=== PATIENT | female | born 1965 | race Caucasian/White ===

== ENCOUNTER 2018-05-03 14:22 | Outpatient (CLI) | payer BC ==
--- NOTE | 2018-05-03 16:23 | ULT ---
THYROID ULTRASOUND: 05/03/18 INDICATION: History of thyroid nodule. COMPARISON: None. TECHNIQUE: Sanchez scale, color doppler images were obtained of the thyroid gland. FINDINGS: The right thyroid lobe measures 4.9 x 1.5 x 1.3 cm. Left thyroid lobe measures 3.9 x 1.3 x 1.1 cm. Th e thyroid isthmus measures 0.5 cm. No focal thyroid lesion is identified. No lymphadenopathy is evide nt. IMPRESSION: No focal thyroid lesion identified. POS: JAMES
== END 2018-05-03 14:23 | disposition home or self-care (01) ==
LOC: BICULT 14:22
PROVIDERS: ATTEND Family Medicine
DX: E04.1 Nontoxic single thyroid nodule (principal)
CPT/HCPCS: 76536

== ENCOUNTER 2018-08-27 14:32 | Outpatient (CLI) | payer OTHER ==
--- NOTE | 2018-08-27 16:41 | MRI ---
MRI OF THE CERVICAL SPINE WITHOUT CONTRAST: Date: 08/27/18 COMPARISON: None. HISTORY: Crick in neck, cervical nerve root compression. TECHNIQUE: Multiplanar, multisequence MR imaging of the cervical spine is obtained without contrast. FINDINGS: The sagittal STIR imaging demonstrates no focal area of osseous marrow edema. There is mild degenerative change noted at the atlantoaxial interspace. No significant anterolisthesi s or retrolisthesis is seen within the cervical spine. No prevertebral soft tissue abnormality noted. C2-3: Mild bilateral facet hypertrophy with no central canal or neural foraminal stenosis. C3-4: Mild disc space narrowing and minimal disc bulge. Mild facet and uncovertebral osteophyte form ation on the left. No significant central canal or neural foraminal stenosis. C4-5: Mild anterior osteophyte formation. No significant central canal or neural foraminal stenosis. C5-6: There is disc space narrowing and mild disc bulge. There is anterior osteophyte formation. The re is facet and uncovertebral osteophyte formation on the left with moderate left neural foraminal st enosis. Mild central canal stenosis. No significant right neural foraminal stenosis. C6-7: Disc space narrowing, anterior osteophyte formation, and disc bulge noted. There is a disc her niation in the left paracentral region. There is facet and uncovertebral osteophyte formation on the left. There is severe left-sided neural foraminal stenosis. There is no significant central canal or right neural foraminal stenosis. C7-T1: Mild bilateral facet hypertrophy with no significant central canal or neural foraminal stenos is. No focal area of abnormal signal intensity is identified within the cervical cord. IMPRESSION: Degenerative changes are noted within the cervical spine. The most significant finding being a left p aracentral/left foraminal disc herniation at C6-7 with associated severe left-sided neural foraminal stenosis. POS: COLIN
== END 2018-08-27 14:33 | disposition home or self-care (01) ==
LOC: BICMRI 14:32
PROVIDERS: ATTEND Family Medicine
DX: G54.2 Cervical root disorders, not elsewhere classified (principal); M47.812 Spondylosis without myelopathy or radiculopathy, cervical region; M50.223 Other cervical disc displacement at C6-C7 level; M48.02 Spinal stenosis, cervical region
CPT/HCPCS: 72141

== ENCOUNTER 2018-11-25 23:31 | Observation (INO) | payer OTHER ==
--- NOTE | 2018-11-25 23:53 | CT ---
Head CT without contrast 11/25/2018: COMPARISON: 11/14/2014 HISTORY: Syncope, collapse TECHNIQUE: Axial CT imaging at 5 mm intervals from vertex through skull base without contrast FINDINGS: Imaged paranasal sinuses and mastoid air cells well-aerated. No displaced calvarial fractur e. No intracranial hemorrhage, midline shift, mass effect, or ventricular enlargement. IMPRESSION: No acute findings.
--- NOTE | 2018-11-25 23:56 | RAD ---
Portable frontal chest radiograph: 11/25/2018 COMPARISON: None HISTORY: Syncope FINDINGS: Lungs are clear. Heart and mediastinal contours appear within normal limits. IMPRESSION: No acute findings.
[2018-11-26] MEDS ORDERED: Promethazine HCl 25 MG/ML VIAL ONE
[2018-11-26 00:15] LABS: #Eosinphils 0.3 thou/uL (0.0-0.7); #Lymphocytes 2.9 thou/uL (1.20-3.40); #Monocytes 0.5 thou/uL (0.11-0.59); #Neutrophils 6.2 thou/uL (1.40-6.50); %Basophils 0.3 % (0.0-1.0); %Eosinophils 2.7 % (0.0-10.0); %Lymphocytes 29.3 % (21.0-51.0); %Monocytes 5.2 % (0.0-10.0); %Neutrophils 62.5 % (42.0-75.0); Hemoglobin 11.6 g/dL (12.0-16.0); Mean Corpuscular HGB CONC 33.7 g/dL (32.0-36.0); Mean Corpuscular Hemoglobin 31.8 pg (27.0-31.0); Mean Corpuscular Volume 94.3 fL (78.0-98.0); Mean Platelet Volume 7.2 fL (7.4-10.4); Platelet Count 355 thou/uL (130-400); RBC Distribution Width 12.3 % (11.5-14.5); Red Blood Cell (RBC) Count 3.64 mill/uL (4.20-5.40); White Blood Cell (WBC) Count 9.9 thou/uL (4.8-10.8)
[2018-11-26] MEDS ORDERED: Magnesium 2 GM/50 ML BAG (IN WATER) ONE (00:28)
[2018-11-26 00:31] LABS: ALT (SGPT) 17 U/L (8-55); AST (SGOT) 16 U/L (5-34); Albumin 3.9 g/dL (3.5-5.0); Alkaline Phosphatase 69 U/L (40-150); Anion Gap 19 mmol/L (10-20); BUN (Urea Nitrogen) 26 mg/dL (9.8-20.1); Bilirubin, Total 0.3 mg/dL (0.2-1.2); Calc. Creatinine Clearance 0 mL/min (70-130); Calcium 8.8 mg/dL (7.8-10.44); Carbon Dioxide 17 mmol/L (22-29); Chloride 105 mmol/L (98-107); Estimated GFR-MDRD 26; Globulin 2.7 g/dL (2.4-3.5); Glucose 157 mg/dL (70-105); Protein, Total 6.6 g/dL (6.0-8.3); Sodium 138 mmol/L (136-145)
[2018-11-26 00:32] LABS: Acetaminophen Less than 6.0 mcg/mL (10.0-30.0); Alcohol Less than 10 mg/dL (Less than 10); Lipase 122 U/L (8-78); Magnesium 1.6 mg/dL (1.6-2.6); Salicylate Less than 8.0 mg/dL (15.0-30.0)
[2018-11-26 00:44] LABS: Potassium 2.8 mmol/L (3.5-5.1)
[2018-11-26] MEDS ORDERED: Potassium Chloride 20 MEQ TAB ONE (01:03)
[2018-11-26 02:02] LABS: Creatinine, Urine 144.1 mg/dL (47-110)
--- NOTE | 2018-11-26 02:19 | PDOC.FPRHP ---
- History of Present Illness Chief Complaint: syncope History of Present Illness: Ms. Katz presents with her with a witnessed fall Earlier this evening she was attempting to fall asleep when she felt restless and got up to go to the restroom, her saw her fall forward, hit her head on the toilet and then slump on the floor. possible arm jerking type motion. aroused and baseline mentation within seconds of fall. She denies chest pain, continued drowsiness, palpitation, or focal weakness. She does report that she felt generally weak and light headed at the time. No recent illness or history of seizure or similar episode. She reports no low blood sugars in the past and no sweating or chills with this event. ED Course: CBC, CMP, ddimer, mag, lipase, trop, UDS, prolactin, urine Na/Cr CT brain, CXR 2 L NS, KCl, Mg, phenegran - Allergies/Adverse Reactions Allergies Allergy/AdvReac Type Severity Reaction Status Date / Time azithromycin Allergy Unverified 11/26/18 01:04 - History PMHx:HTN, HLD, DMII, Anxiety/depression PSHx: choley FHx:NC Social: no tobacco/alcohol. daily marijuana use - Review of Systems General: denies: fever/chills, night sweats Eyes: denies: vision changes Respiratory: denies: cough, shortness of breath Cardiovascular: denies: chest pain, palpitation, edema Gastrointestinal: denies: nausea, vomiting, diarrhea, constipation Genitourinary: denies: dysuria, polyuria Skin: denies: rashes, lesions Musculoskeletal: denies: pain, tenderness Neurological: reports: syncope. denies: numbness Psychological: reports: anxiety, depression - Vital signs BP: 102/55 HR: 96 RR: 19 Tmax: 97.9 Pox: 100% on RA Wt: 86kg - Physical Exam Constitutional: NAD, awake, alert and oriented HEENT: normocephalic and atraumatic, grossly normal vision, grossly normal hearing, MMM Neck: supple, trachea midline, no bruits Chest: no-tender to palpation Heart: RRR, normal S1/S2 Lungs: CTAB, no respiratory distress, good air movement Abdomen: soft, non-tender, bowel sounds present Musculoskeletal: normal structure, normal tone Neurological: no focal deficit, CN II-XII intact, normal sensation Skin: no rash/lesions, good turgor Heme/Lymphatic: no unusual bruising or bleeding Psychiatric: normal mood and affect FMR H&P: Results - Labs Result Diagrams: 11/25/18 23:57 11/25/18 23:57 Lab results: WBC 9.9 thou/uL (4.8-10.8) 11/25/18 23:57 Hgb 11.6 g/dL (12.0-16.0) L 11/25/18 23:57 Hct 34.3 % (36.0-47.0) L 11/25/18 23:57 MCV 94.3 fL (78.0-98.0) 11/25/18 23:57 Plt Count 355 thou/uL (130-400) 11/25/18 23:57 Neutrophils % 62.5 % (42.0-75.0) 11/25/18 23:57 Sodium 138 mmol/L (136-145) 11/25/18 23:57 Potassium 2.8 mmol/L (3.5-5.1) L* 11/25/18 23:57 Chloride 105 mmol/L (98-107) 11/25/18 23:57 Carbon Dioxide 17 mmol/L (22-29) L 11/25/18 23:57 BUN 26 mg/dL (9.8-20.1) H 11/25/18 23:57 Creatinine 2.04 mg/dL (0.6-1.1) H 11/25/18 23:57 Glucose 157 mg/dL (70-105) H 11/25/18 23:57 Calcium 8.8 mg/dL (7.8-10.44) 11/25/18 23:57 Total Bilirubin 0.3 mg/dL (0.2-1.2) 11/25/18 23:57 AST 16 U/L (5-34) 11/25/18 23:57 ALT 17 U/L (8-55) 11/25/18 23:57 Alkaline Phosphatase 69 U/L (40-150) 11/25/18 23:57 Serum Total Protein 6.6 g/dL (6.0-8.3) 11/25/18 23:57 Albumin 3.9 g/dL (3.5-5.0) 11/25/18 23:57 Lipase 122 U/L (8-78) H 11/25/18 23:57 FMR H&P: A/P - Problem List (1) Elevated prolactin level Current Visit: Yes Status: Acute Code(s): 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, UNSPECIFIED (2) Hypokalemia Current Visit: Yes Status: Acute Code(s): E87.6 - HYPOKALEMIA (3) SOLEDAD (acute kidney injury) Current Visit: Yes Status: Acute Code(s): N17.9 - ACUTE KIDNEY FAILURE, UNSPECIFIED (4) Elevated lipase Current Visit: Yes Status: Acute Code(s): R74.8 - ABNORMAL LEVELS OF OTHER SERUM ENZYMES (5) Syncope Current Visit: Yes Status: Acute Code(s): R55 - SYNCOPE AND COLLAPSE (6) DMII (diabetes mellitus, type 2) Current Visit: Yes Status: Acute (7) HTN (hypertension) Current Visit: Yes Status: Acute Code(s): I10 - ESSENTIAL (PRIMARY) HYPERTENSION (8) HLD (hyperlipidemia) Current Visit: Yes Status: Acute Code(s): E78.5 - HYPERLIPIDEMIA, UNSPECIFIED - Plan Syncope - witnessed fall with head injury, CT neg for acute process - hypotension with associated tachycardia - Orthostatics, TSH, MRI brain WO con pending - hold anticoagulation ppx elevated prolactin - possible seizure-like activity - consider EEG, Neuro consult in AM - consider quietapine as a possible cause SOLEDAD - elevated from previous values, consider hypovolemia - urine studies pending - IVF resuscitation - monitor CMP elevated lipase - unknown cause, consider further evaluation with CT abd/pel - amylase pending hypokalemia - 2.8 POA, oral and IV potassium given in ED - monitor CMP DMII - mild SSI with ACHS glucose checks - continue home meds HTN - hold home meds HLD - continue home meds PCP: Valeriano Code: full ppx: [facility] Dispo: admit to stroke for continuous monitoring FMR H&P: Upper Level - Pertinent history 53 yo female presenting to ER from home after a syncopal episode. Patient reports she had just taken her bedtime medications and was walking to the bathroom when she suddenly felt nauseous, dizzy, restless. Lost consciousness and woke up on the floor. reports she fell to the floor and was only out momentarily with no seizure like activity. In ER, received Phenergan, potassium iv and po, Mg, NS 2L PMH of DMII, HTN, anxiety, depression, cervical nerve root compression - Pertinent findings 108/51 HR: 85 100% on RA RR: 23 K: 2.8 Cr: 2.04 (1.2 in clinic in Jul 2018) M.6 CT abd and CXR negative EKG: NSR GEN: NAD, AOx3 CARD: RRR, no mgr PULM: CTAB ABD: non-tender EXT: no cyanosis or edema - Plan Date/Time: 11/26/18 0215 I, Jareth Bal DO, have evaluated this patient and agree with findings/plan as outlined by internet network specialist resident. Pertinent changes/additions are listed here. #syncopal episode -CVA vs TIA vs vasovagal vs hypovolemic vs iatrogenic -fluid resuscitated 2/ SOLEDAD -check orthostatics -CT head neg for bleed -check the other stroke workup (MRI, CTA head/neck, lipids) -monitor on stroke #SOLEDAD #hypokalemia -replace and recheck #DMII -continue home meds #HTN -continue home meds #elevated lipase -check amylase -consider CT abdomen #elevated prolactin -low suspicion for medication induced -low suspicion for stroke induced -can be caused by tumor on pituitary, will be able to check on MRI -also check TSH Addendum - Attending - Attending Attestation Date/Time: 11/26/18 1101 I personally evaluated the patient and discussed the management with Dr. Jiang/ Valeriano. I agree with the History, Examination, Assessment and Plan documented above with any addition or exceptions noted below. Patient here after fall that occurred overnight, witnessed. She reports noticing her medications kick in, and reported a hot flash so she attempted to get out of bed and felt pre-syncopal with a fall and syncope episode thereafter. She immediately returned to baseline mentation. Low suspicion of seizure activity, and her Prolactin level is too far out from event to be from seizure activity. She is being admitted for syncope workup and hypovolemia. She reports feeling improved currently. Replete potassium. Monitor on stroke unit and anticipate just an overnight stay in hospital with further workup outpatient if needed.
[2018-11-26] MEDS ORDERED: Dextrose 5% in Water 1,000 ML IV PRN (05:21)
[2018-11-26] MEDS ORDERED: Acetaminophen 650 MG Suppository PR PRN (05:21)
[2018-11-26] MEDS ORDERED: Lorazepam 2 MG/ML VIAL SLOW IVP PRN (05:21)
[2018-11-26] MEDS ORDERED: Ondansetron PF 4 MG/2 ML Vial IVP PRN (05:21)
[2018-11-26] MEDS ORDERED: Dextrose 50% Abboject 50 ML SYRINGE SLOW IVP PRN (05:21)
[2018-11-26] MEDS ORDERED: Acetaminophen 325 MG TAB PO PRN (05:21)
[2018-11-26] MEDS ORDERED: Ondansetron ODT 4 MG TAB PO PRN (05:21)
[2018-11-26] MEDS ORDERED: HumaLOG 300 UNITS/3 ML VIAL SC PRN ×2 (05:21)
[2018-11-26] MEDS ORDERED: Ibuprofen 800 MG TAB PO PRN ×2 (08:28→19:29)
[2018-11-26 11:42] LABS: Troponin I Less than 0.010 ng/mL (< 0.028)
[2018-11-26 12:15] VITALS: BMI 32.6
[2018-11-26 12:31] LABS: Anion Gap 20 mmol/L (10-20); BUN (Urea Nitrogen) 17 mg/dL (9.8-20.1); Calc. Creatinine Clearance 62 mL/min (70-130); Calcium 8.8 mg/dL (7.8-10.44); Carbon Dioxide 17 mmol/L (22-29); Chloride 105 mmol/L (98-107); Estimated GFR-MDRD 44; Glucose 147 mg/dL (70-105); Potassium 5.1 mmol/L (3.5-5.1); Sodium 137 mmol/L (136-145)
--- NOTE | 2018-11-26 12:39 | MRI ---
MRI brain without contrast: 11/26/2018 COMPARISON: None HISTORY: Transient ischemic attack Technique: Multiplanar multisequence MR imaging of the brain obtained without contrast FINDINGS: The diffusion weighted imaging demonstrates no evidence for acute infarction. The axial gra dient echo imaging demonstrates no evidence for intracranial hemorrhage. There are a few subcentimeter foci of increased T2/FLAIR signal within the deep white matter of the l eft frontal region, suggesting mild small vessel disease. The imaged paranasal sinuses and mastoid air cells are well aerated. Arterial flow voids appear unrem arkable at the axial level of the skull base. No midline shift, mass effect, or ventricular enlargement. Regional bone marrow signal intensity appe ars within normal limits. IMPRESSION: No acute infarction or intracranial hemorrhage.
[2018-11-26] MEDS: Potassium Chloride 20 MEQ in Premix Bag 1 BAG IVPB SCH ×2 (13:26→13:27)
[2018-11-26] MEDS: metFORMIN 500 MG TAB PO SCH (20:28)
[2018-11-26] MEDS: Gabapentin 300 MG CAP PO SCH (20:35)
[2018-11-26] MEDS ORDERED: busPIRone HCl 10 MG TAB PO SCH (21:00)
[2018-11-26] MEDS ORDERED: Atorvastatin Calcium 40 MG TAB PO SCH (21:00)
[2018-11-26] MEDS ORDERED: Latanoprost 0.005% Ophth Soln 2.5 ml Bottle EA EYE SCH (21:00)
[2018-11-26] MEDS ORDERED: Doxepin HCl 25 MG CAP PO SCH (21:00)
[2018-11-27 05:22] LABS: #Eosinphils 0.2 thou/uL (0.0-0.7); #Lymphocytes 2.5 thou/uL (1.20-3.40); #Monocytes 0.6 thou/uL (0.11-0.59); #Neutrophils 4.5 thou/uL (1.40-6.50); %Basophils 0.4 % (0.0-1.0); %Lymphocytes 31.6 % (21.0-51.0); %Monocytes 7.5 % (0.0-10.0); %Neutrophils 57.4 % (42.0-75.0); Hemoglobin 12.8 g/dL (12.0-16.0); Mean Corpuscular HGB CONC 33.7 g/dL (32.0-36.0); Mean Corpuscular Hemoglobin 32.3 pg (27.0-31.0); Mean Corpuscular Volume 95.6 fL (78.0-98.0); Platelet Count 383 thou/uL (130-400); RBC Distribution Width 12.4 % (11.5-14.5); Red Blood Cell (RBC) Count 3.96 mill/uL (4.20-5.40); White Blood Cell (WBC) Count 7.8 thou/uL (4.8-10.8)
[2018-11-27 05:43] LABS: ALT (SGPT) 19 U/L (8-55); AST (SGOT) 18 U/L (5-34); Albumin 4.4 g/dL (3.5-5.0); Alkaline Phosphatase 74 U/L (40-150); Anion Gap 14 mmol/L (10-20); BUN (Urea Nitrogen) 13 mg/dL (9.8-20.1); Bilirubin, Total 0.4 mg/dL (0.2-1.2); Calc. Creatinine Clearance 70 mL/min (70-130); Calcium 9.7 mg/dL (7.8-10.44); Carbon Dioxide 25 mmol/L (22-29); Chloride 104 mmol/L (98-107); Estimated GFR-MDRD 51; Globulin 3.2 g/dL (2.4-3.5); Glucose 120 mg/dL (70-105); Protein, Total 7.6 g/dL (6.0-8.3); Sodium 138 mmol/L (136-145)
--- NOTE | 2018-11-27 06:58 | PDOC.FPRHP ---
- Allergies/Adverse Reactions Allergies Allergy/AdvReac Type Severity Reaction Status Date / Time azithromycin Allergy Mild Diarrhea Verified 11/26/18 12:54 - Home Medications Medication Instructions Recorded Confirmed Type Atorvastatin Calcium 1 tab PO HS 11/26/18 11/26/18 History Doxepin HCl 1 tab PO HS 11/26/18 11/26/18 History Gabapentin 1 tab PO TID 11/26/18 11/26/18 History Ibuprofen [Ibu] 2 tab PO TID PRN 11/26/18 11/26/18 History Latanoprost [Xalatan 0.005% Ophth 1 drop EA EYE HS 11/26/18 11/26/18 History Soln] Lisinopril 1 tab PO DAILY 11/26/18 11/26/18 History QUEtiapine Fumarate [SEROquel] 400 mg PO HS 11/26/18 11/26/18 History Terbinafine [LamISIL] 1 tab PO DAILY 11/26/18 11/26/18 History Venlafaxine HCl [Venlafaxine HCl 1 tab PO DAILY 11/26/18 11/26/18 History ER] busPIRone HCl [Buspirone HCl] 1 tab PO HS 11/26/18 11/26/18 History metFORMIN HCl [Metformin HCl] 1,000 mg PO BID 11/26/18 11/26/18 History - History PMHx: PSHx: FHx: Social: - Vital signs BP: [] HR: [] RR: [] Tmax: [] Pox: []% on [] Wt: [] FMR H&P: Results - Labs Result Diagrams: 11/27/18 05:05 11/27/18 05:05 Lab results: WBC 7.8 thou/uL (4.8-10.8) 11/27/18 05:05 Hgb 12.8 g/dL (12.0-16.0) 11/27/18 05:05 Hct 37.9 % (36.0-47.0) 11/27/18 05:05 MCV 95.6 fL (78.0-98.0) 11/27/18 05:05 Plt Count 383 thou/uL (130-400) 11/27/18 05:05 Neutrophils % 57.4 % (42.0-75.0) 11/27/18 05:05 Sodium 138 mmol/L (136-145) 11/27/18 05:05 Potassium 5.0 mmol/L (3.5-5.1) 11/27/18 05:05 Chloride 104 mmol/L (98-107) 11/27/18 05:05 Carbon Dioxide 25 mmol/L (22-29) 11/27/18 05:05 BUN 13 mg/dL (9.8-20.1) 11/27/18 05:05 Creatinine 1.12 mg/dL (0.6-1.1) H 11/27/18 05:05 Glucose 120 mg/dL (70-105) H 11/27/18 05:05 Calcium 9.7 mg/dL (7.8-10.44) 11/27/18 05:05 Total Bilirubin 0.4 mg/dL (0.2-1.2) 11/27/18 05:05 AST 18 U/L (5-34) 11/27/18 05:05 ALT 19 U/L (8-55) 11/27/18 05:05 Alkaline Phosphatase 74 U/L (40-150) 11/27/18 05:05 Serum Total Protein 7.6 g/dL (6.0-8.3) 11/27/18 05:05 Albumin 4.4 g/dL (3.5-5.0) 11/27/18 05:05 Lipase 122 U/L (8-78) H 11/25/18 23:57 FMR H&P: A/P - Problem List (1) SOLEDAD (acute kidney injury) Current Visit: Yes Status: Acute Code(s): N17.9 - ACUTE KIDNEY FAILURE, UNSPECIFIED (2) DMII (diabetes mellitus, type 2) Current Visit: Yes Status: Acute (3) Elevated lipase Current Visit: Yes Status: Acute Code(s): R74.8 - ABNORMAL LEVELS OF OTHER SERUM ENZYMES (4) Elevated prolactin level Current Visit: Yes Status: Acute Code(s): 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, UNSPECIFIED (5) HLD (hyperlipidemia) Current Visit: Yes Status: Acute Code(s): E78.5 - HYPERLIPIDEMIA, UNSPECIFIED (6) HTN (hypertension) Current Visit: Yes Status: Acute Code(s): I10 - ESSENTIAL (PRIMARY) HYPERTENSION (7) Hypokalemia Current Visit: Yes Status: Acute Code(s): E87.6 - HYPOKALEMIA (8) Syncope Current Visit: Yes Status: Acute Code(s): R55 - SYNCOPE AND COLLAPSE - Plan Syncope - witnessed fall with head injury, CT neg for acute process - hypotension with associated tachycardia, orthostatics negative - MRI and TSH negative - considering history, could be 2/2 medications or combination of this and vasovagal event elevated prolactin - consider quietapine as a possible cause SOLEDAD, improving - elevated from previous values, consider hypovolemia - urine studies pending - IVF resuscitation - monitor CMP elevated lipase - unknown cause, pt asymptomatic hypokalemia, improved - 2.8 POA, oral and IV potassium given in ED DMII - mild SSI with ACHS glucose checks - continue home meds HTN - continue home meds HLD - continue home meds PCP: Valeriano Code: full ppx: [facility] Dispo: plan for discharge today FMR H&P: Upper Level - Plan Date/Time: 11/27/18 0655 I, [], have evaluated this patient and agree with findings/plan as outlined by architect intern resident. Pertinent changes/additions are listed here.
[2018-11-27] MEDS: metFORMIN 500 MG TAB PO SCH (08:51)
[2018-11-27] MEDS: Gabapentin 300 MG CAP PO SCH (08:51)
[2018-11-27] MEDS ORDERED: Terbinafine 250 MG TAB PO SCH (09:00)
[2018-11-27] MEDS ORDERED: Lisinopril 10 MG TAB PO SCH (09:00)
[2018-11-27] MEDS ORDERED: Venlafaxine HCl XR 150 MG CAP PO SCH (09:00)
--- NOTE | 2018-11-27 11:01 | PDOC.FM ---
- Subjective Subjective: Ms. Katz is feeling well. Tolerating PO. Denies dizziness or lightheadedness. Ambulating well. Feels safe to go home today. - Objective Vital Signs & Weight: Vital Signs (12 hours) Temp Pulse Resp BP BP BP Pulse Ox 11/27/18 08:51 134/61 11/27/18 07:36 99 F 93 20 134/61 98 11/27/18 04:00 98.6 F 97 18 130/79 99 11/27/18 00:00 98.5 F 91 18 119/59 L 98 Weight Weight 75.892 kg I&O: 11/26/18 11/27/18 11/28/18 06:59 06:59 06:59 Intake Total 720 Balance 720 Result Diagrams: 11/27/18 05:05 11/27/18 05:05 Phys Exam - Physical Examination Constitutional: NAD Respiratory: no wheezing, clear to auscultation bilateral Cardiovascular: RRR, no significant murmur Gastrointestinal: soft, non-tender, positive bowel sounds Musculoskeletal: no edema, pulses present Neurological: non-focal Psychiatric: normal affect Skin: no rash Dx/Plan (1) SOLEDAD (acute kidney injury) Code(s): N17.9 - ACUTE KIDNEY FAILURE, UNSPECIFIED Status: Acute (2) DMII (diabetes mellitus, type 2) Status: Acute (3) Elevated lipase Code(s): R74.8 - ABNORMAL LEVELS OF OTHER SERUM ENZYMES Status: Acute (4) Elevated prolactin level Code(s): 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, UNSPECIFIED Status: Acute (5) HLD (hyperlipidemia) Code(s): E78.5 - HYPERLIPIDEMIA, UNSPECIFIED Status: Acute (6) HTN (hypertension) Code(s): I10 - ESSENTIAL (PRIMARY) HYPERTENSION Status: Acute (7) Hypokalemia Code(s): E87.6 - HYPOKALEMIA Status: Acute (8) Syncope Code(s): R55 - SYNCOPE AND COLLAPSE Status: Acute - Plan Plan: Syncope - witnessed fall with head injury, CT neg for acute process - hypotension with associated tachycardia, orthostatics negative - MRI and TSH negative - likely 2/2 medications or combination of this and vasovagal syncope elevated prolactin - consider quietapine as a possible cause SOLEDAD, improving - elevated from previous values, consider hypovolemia - IVF resuscitation - monitor CMP elevated lipase - unknown cause, pt asymptomatic hypokalemia, improved - 2.8 POA, oral and IV potassium given in ED DMII - mild SSI with ACHS glucose checks - continue home meds HTN - continue home meds HLD - continue home meds PCP: Valeriano Code: full ppx: [facility] Dispo: plan for discharge today
[2018-11-27 11:26] VITALS: BP 140/63; TEMP 98.8
--- NOTE | 2018-11-27 13:25 | PRG ---
DATE OF SERVICE: 11/27/2018 Ms. Katz is awake and alert this morning. She is cheerful and in no distress. She was admitted with a near syncopal episode, which really sounds like a possible vagal response exacerbated by some of the medication she takes. In the event, her workup thus far has not revealed any serious maladies. She did have a very slight anemia on the CBC, white count 9900, hemoglobin 11.6, hematocrit 34.3. This was rechecked today and her hemoglobin is 12.8 with hematocrit 37.9. Her chemistries all looked good and BUN 13, creatinine 1.12, glucose 120. She had a brain MRI, which showed no acute infarction or intracranial hemorrhage. Her EKG did not show any significant arrhythmia or QT prolongation. She will be discharged today for followup with her PCP. Job ID: [id number]
--- NOTE | 2018-11-28 11:32 | DIS ---
DATE OF ADMISSION: 11/26/2018 DATE OF DISCHARGE: 11/27/2018 RESIDENT: Madelyn Nichols DO ADMITTING ATTENDING: Marianna Shelby MD DISCHARGE ATTENDING: Semaj Mandel MD CONSULTS: None. PROCEDURES: 1. 11/2018, chest x-ray showed no acute findings. 2. 11/25/2018, brain CT showed no acute findings. 3. 11/26/2018, brain MRI showed no acute infarction or intracranial hemorrhage. PRIMARY DIAGNOSES: 1. Syncope. 2. Acute kidney injury. 3. Elevated lipase. 4. Hypokalemia. 5. Elevated prolactin. SECONDARY DIAGNOSES: Type 2 diabetes, hypertension, hyperlipidemia. DISCHARGE MEDICATIONS: 1. Metformin 1000 mg p.o. b.i.d. 2. Buspirone 15 mg p.o. t.i.d. 3. Venlafaxine 150 mg extended release one tab p.o. daily. 4. Lamisil 250 mg p.o. daily. 5. Lisinopril 10 mg p.o. daily. 6. Latanoprost ophthalmic solution one drop each eye at bedtime. 7. Doxepin 100 mg p.o. at bedtime. 8. Atorvastatin 40 mg p.o. at bedtime. 9. Quetiapine 400 mg p.o. at bedtime. 10. Ibuprofen 400 mg two tabs p.o. t.i.d. p.r.n. HISTORY OF PRESENT ILLNESS: A 53-year-old female presented with her after a witnessed fall. She awoke from sleep to go to the restroom and fell in the bathroom, hitting her head on the toilet and something on the floor. She was admitted for syncope and this workup was conducted. She was admitted to Stroke for monitoring. The patient was feeling well. She denied any dizziness or lightheadedness, and was ambulating without issues. Orthostatic vital signs negative. All imaging was negative as well as above. This event appeared likely secondary to medications as the patient noted she took her psychiatric medications prior to this event, which can cause her to feel this way at times. In addition, vasovagal syncope was likely. The patient's SOLEDAD improved. She did have an elevated prolactin and medication use, particularly quetiapine was regarded as cause. Do not suspect seizure. Her hypokalemia improved. She did have a mildly elevated lipase on admission of unknown cause, but patient was asymptomatic. Otherwise, home medications were continued and the patient was discharged asymptomatic and in stable condition. DISPOSITION: Stable. DISCHARGE INSTRUCTIONS: 1. Location: Home. 2. Diet: Diabetic and heart healthy. 3. Activity: As tolerated. 4. Followup: Follow up with [facility] in 7 days. Job ID: [id number]
--- NOTE | 2018-12-08 13:32 | EKG ---
Test Reason : Blood Pressure : / mmHG Vent. Rate : 089 BPM Atrial Rate : 089 BPM P-R Int : 160 ms QRS Dur : 088 ms QT Int : 430 ms P-R-T Axes : 036 077 096 degrees QTc Int : 523 ms Normal sinus rhythm Nonspecific ST and T wave abnormality Prolonged QT Abnormal ECG Confirmed by COLIN MALDONADO ([id number]), electronic news gathering editor STEVEN POLO ([id number]) on 12/08/2018 1:32:31 PM Referred By: Confirmed By:COLIN MALDONADO
== END 2018-11-27 12:05 | disposition home or self-care (01) ==
LOC: ERS 23:31 → ERHOLD 11-26 01:24 → 2SE 11-26 09:52
PROVIDERS: ADMIT Family Medicine; ATTEND Family Medicine
DX: R55 Syncope and collapse (principal); N17.9 Acute kidney failure, unspecified; R74.8 Abnormal levels of other serum enzymes; E87.6 Hypokalemia; E22.1 Hyperprolactinemia; E11.9 Type 2 diabetes mellitus without complications; I10 Essential (primary) hypertension; E78.5 Hyperlipidemia, unspecified; F41.9 Anxiety disorder, unspecified; F32.9 Major depressive disorder, single episode, unspecified; Z79.84 Long term (current) use of oral hypoglycemic drugs; Z79.899 Other long term (current) drug therapy; Z88.1 Allergy status to other antibiotic agents; W01.198A Fall on same level from slipping, tripping and stumbling with subsequent striking against other object, initial encounter
CPT/HCPCS: 36415; 36416; 70450; 70551; 71045; 80048; 80053; 80307; 82150; 82570; 83690; 83735; 84146; 84300; 84443; 84484; 85025; 85379; 93005; 94760; 96361; 96365; 96366; 96367; 96375; G0378; J2550; J3475; J3480; Q0162

== ENCOUNTER 2019-01-07 22:51 | Emergency (ER) | payer OTHER ==
--- NOTE | 2019-01-07 23:31 | CT ---
CT Brain WO Con HISTORY: Headache and dizziness. COMPARISON: 11/25/2018 exam. FINDINGS: The ventricular and cisternal system is within normal limits. There are no signs of intrace rebral hemorrhage or extra-axial fluid collections. The mastoid air cells and visualized sinuses appear clear. IMPRESSION: No acute intracranial abnormalities.
[2019-01-07] MEDS ORDERED: Meclizine HCl 25 MG TAB ONE (23:41)
[2019-01-08] MEDS ORDERED: diphenhydrAMINE 25 MG CAP ONE (00:34)
--- NOTE | 2019-01-12 10:30 | EKG ---
Test Reason : DIZZINESS Blood Pressure : / mmHG Vent. Rate : 106 BPM Atrial Rate : 106 BPM P-R Int : 176 ms QRS Dur : 092 ms QT Int : 382 ms P-R-T Axes : 044 069 046 degrees QTc Int : 507 ms Sinus tachycardia Nonspecific T wave abnormality Abnormal ECG Confirmed by WIN RAZA M.D. ([id number]), editorial clerk STEVEN POLO ([id number]) on 01/12/2019 10:29:49 AM Referred By: NIKI RAZA Confirmed By:WIN RAZA M.D.
== END 2019-01-08 00:52 | disposition home or self-care (01) ==
LOC: ERS 22:51
DX: R42 Dizziness and giddiness (principal); E78.5 Hyperlipidemia, unspecified; I10 Essential (primary) hypertension; F41.9 Anxiety disorder, unspecified; F31.9 Bipolar disorder, unspecified; Z79.84 Long term (current) use of oral hypoglycemic drugs; Z79.899 Other long term (current) drug therapy
CPT/HCPCS: 70450; 93005; J8499; Q0163

== ENCOUNTER 2019-01-23 01:03 | Observation (INO) | payer OTHER ==
[2019-01-23 02:06] LABS: #Eosinphils 0.2 thou/uL (0.0-0.7); #Lymphocytes 2.6 thou/uL (1.20-3.40); #Monocytes 0.9 thou/uL (0.11-0.59); #Neutrophils 12.5 thou/uL (1.40-6.50); %Basophils 0.2 % (0.0-1.0); %Eosinophils 1.3 % (0.0-10.0); %Lymphocytes 15.8 % (21.0-51.0); %Monocytes 5.5 % (0.0-10.0); %Neutrophils 77.2 % (42.0-75.0); Hemoglobin 12.7 g/dL (12.0-16.0); Mean Corpuscular HGB CONC 34.7 g/dL (32.0-36.0); Mean Corpuscular Hemoglobin 32.1 pg (27.0-31.0); Mean Corpuscular Volume 92.5 fL (78.0-98.0); Mean Platelet Volume 6.9 fL (7.4-10.4); Platelet Count 400 thou/uL (130-400); RBC Distribution Width 11.8 % (11.5-14.5); Red Blood Cell (RBC) Count 3.95 mill/uL (4.20-5.40); White Blood Cell (WBC) Count 16.1 thou/uL (4.8-10.8)
[2019-01-23 02:29] LABS: ALT (SGPT) 23 U/L (8-55); AST (SGOT) 18 U/L (5-34); Albumin 4.4 g/dL (3.5-5.0); Alkaline Phosphatase 91 U/L (40-150); Anion Gap 16 mmol/L (10-20); BUN (Urea Nitrogen) 22 mg/dL (9.8-20.1); Bilirubin, Total 0.3 mg/dL (0.2-1.2); Calc. Creatinine Clearance 0 mL/min (70-130); Calcium 9.6 mg/dL (7.8-10.44); Carbon Dioxide 25 mmol/L (22-29); Chloride 101 mmol/L (98-107); Estimated GFR-MDRD 37; Globulin 3.1 g/dL (2.4-3.5); Glucose 133 mg/dL (70-105); Potassium 3.6 mmol/L (3.5-5.1); Protein, Total 7.5 g/dL (6.0-8.3); Sodium 138 mmol/L (136-145)
[2019-01-23] MEDS ORDERED: Piperacillin/Tazobactam 3.375 GM VIAL ONE (03:28)
--- NOTE | 2019-01-23 03:55 | PDOC.FPRHP ---
- History of Present Illness Chief Complaint: Syncope History of Present Illness: Mrs. Katz is a pleasant 53yo F with PMH of Bipolar, DMII, HTN who presents after a syncopal event. She states she awoke from sleep at approx 0100 with a "funny feeling" that is very difficult to describe. She states that the feeling is similar to previous episodes of hypotension, so she got up to take her blood pressure. Upon walking, she began to feel unsteady and have a feeling of tunnel vision and felt like she was about to pass out. She leaned against the wall and fell to the floor. Next thing she remembers is her shaking her to wake her up. They then called EMS. Upon awakening, her BP was 80/53, she was A/O per patient without focal neural decifits, loss of bladder or bowel control, or focal weakness. Syncopal event lasted a few seconds. She states that this episode is very similar to her previous admission in 11/27 for syncopy. At that time a workup was preformed and cause was attributed to medications, likely seroquel. She also had an SOLEDAD at that time with Cr 2.04 which trened to 1.12 at discharge. She currently denies any palpitations, CP, SOB, pain, urinary sxs, recent illnesses or sick contacts. She does endores nonbloody, nonbilious vomiting x2 since the event with mild nausea. She also reports a mild headache over the past day described as a temporal pressure. ED Course: In the ED, she was initially hypotensive to 80s/60s which responded well to 2.5L NS bolus to 120s/80s. EKG was WNL. BCx and UA were ordered. 1 dose of Zoysn was given. [facility] was then called for further management and admission. - Allergies/Adverse Reactions Allergies Allergy/AdvReac Type Severity Reaction Status Date / Time azithromycin Allergy Mild Diarrhea Verified 01/23/19 06:30 - Home Medications Medication Instructions Recorded Confirmed Type Atorvastatin Calcium 40 mg PO HS 11/26/18 01/23/19 History Doxepin HCl 200 mg PO HS 11/26/18 01/23/19 History Ibuprofen [Ibu] 2 tab PO TID PRN 11/26/18 01/23/19 History Latanoprost [Xalatan 0.005% Ophth 1 drop EA EYE HS 11/26/18 01/23/19 History Soln] Lisinopril 10 mg PO DAILY 11/26/18 01/23/19 History QUEtiapine Fumarate [SEROquel] 400 mg PO HS 11/26/18 01/23/19 History Venlafaxine HCl [Venlafaxine HCl 150 mg PO DAILY 11/26/18 01/23/19 History ER] busPIRone HCl [Buspirone HCl] 15 mg PO TID 11/26/18 01/23/19 History metFORMIN HCl [Metformin HCl] 1,000 mg PO BID 11/26/18 01/23/19 History Zantac 150 mg PO DAILY 01/23/19 01/23/19 History hydrOXYzine HCl [Hydroxyzine HCl] 1 - 2 tab PO BID PRN 01/23/19 01/23/19 History - History PMHx:HTN, HLD, DMII, Anxiety/depression, Bipolar, Glaucoma PSHx: cheri 1994 FHx:NC Social: No current tobacco/alcohol. Daily marijuana use. Remote use of tobacco ( 14py history, quit at age 28) - Review of Systems General: reports: weight/appetite/sleep changes (insomnia). denies: fever/ chills, fatigue Eyes: denies: eye pain, vision changes ENT: denies: nasal congestion, rhinorrhea Respiratory: reports: cough. denies: congestion, shortness of breath Cardiovascular: denies: chest pain, palpitation, edema Gastrointestinal: reports: nausea, vomiting (x2 since episode), diarrhea (since cheri in 1994). denies: constipation Genitourinary: denies: incontinence, dysuria, polyuria Skin: denies: rashes, lesions Musculoskeletal: denies: pain, swelling Neurological: reports: syncope. denies: numbness, seizure, weakness Psychological: reports: anxiety (stable, chronic), depression (stable, chronic) - Vital signs BP: 115/84 HR: 83 RR: 18 Tmax: 97.6 Pox: 97% on RA Wt: 77kg - Physical Exam Constitutional: NAD, awake, alert and oriented, well developed HEENT: normocephalic and atraumatic, PERRLA, EOMI, grossly normal vision, grossly normal hearing Neck: supple, trachea midline Heart: RRR, normal S1/S2, no murmurs/rubs/gallops, pulses present (2+ bilateral upper and lower extremities) Lungs: CTAB, good air movement Abdomen: soft, non-tender, bowel sounds present, no masses/distention Musculoskeletal: normal structure, normal tone, ROM grossly normal, other ( strength 5/5 throughout) Neurological: no focal deficit, CN II-XII intact, normal sensation Skin: no rash/lesions Heme/Lymphatic: no unusual bruising or bleeding Psychiatric: normal mood and affect FMR H&P: Results - Labs Result Diagrams: 01/23/19 01:53 01/23/19 01:53 Lab results: WBC 16.1 thou/uL (4.8-10.8) H 01/23/19 01:53 Hgb 12.7 g/dL (12.0-16.0) 01/23/19 01:53 Hct 36.5 % (36.0-47.0) 01/23/19 01:53 MCV 92.5 fL (78.0-98.0) 01/23/19 01:53 Plt Count 400 thou/uL (130-400) 01/23/19 01:53 Neutrophils % 77.2 % (42.0-75.0) H 01/23/19 01:53 Sodium 138 mmol/L (136-145) 01/23/19 01:53 Potassium 3.6 mmol/L (3.5-5.1) 01/23/19 01:53 Chloride 101 mmol/L (98-107) 01/23/19 01:53 Carbon Dioxide 25 mmol/L (22-29) 01/23/19 01:53 BUN 22 mg/dL (9.8-20.1) H 01/23/19 01:53 Creatinine 1.49 mg/dL (0.6-1.1) H 01/23/19 01:53 Glucose 133 mg/dL (70-105) H 01/23/19 01:53 Lactic Acid 2.8 mmol/L (0.5-2.2) H 01/23/19 01:53 Calcium 9.6 mg/dL (7.8-10.44) 01/23/19 01:53 Total Bilirubin 0.3 mg/dL (0.2-1.2) 01/23/19 01:53 AST 18 U/L (5-34) 01/23/19 01:53 ALT 23 U/L (8-55) 01/23/19 01:53 Alkaline Phosphatase 91 U/L (40-150) 01/23/19 01:53 Serum Total Protein 7.5 g/dL (6.0-8.3) 01/23/19 01:53 Albumin 4.4 g/dL (3.5-5.0) 01/23/19 01:53 - EKG Interpretation EKG: NSR, rate 85, normal axis, no ST or T wave changes. - Radiology Interpretation Chest x-ray Status: image reviewed by me (No acute cardiopulmonary finding. Sharp costodiaphragmatic recesses, no focal consolidation.) FMR H&P: A/P - Problem List (1) Syncope Current Visit: Yes Status: Acute Code(s): R55 - SYNCOPE AND COLLAPSE (2) SOLEDAD (acute kidney injury) Current Visit: Yes Status: Acute Code(s): N17.9 - ACUTE KIDNEY FAILURE, UNSPECIFIED (3) Leukocytosis Current Visit: Yes Status: Acute Code(s): D72.829 - ELEVATED WHITE BLOOD CELL COUNT, UNSPECIFIED (4) Lactic acid acidosis Current Visit: Yes Status: Acute Code(s): E87.2 - ACIDOSIS (5) DMII (diabetes mellitus, type 2) Current Visit: Yes Status: Chronic Qualifiers: Diabetes mellitus complication status: without complication (6) HLD (hyperlipidemia) Current Visit: Yes Status: Chronic Code(s): E78.5 - HYPERLIPIDEMIA, UNSPECIFIED (7) HTN (hypertension) Current Visit: Yes Status: Chronic Code(s): I10 - ESSENTIAL (PRIMARY) HYPERTENSION (8) Depression Current Visit: Yes Status: Chronic Code(s): F32.9 - MAJOR DEPRESSIVE DISORDER, SINGLE EPISODE, UNSPECIFIED - Plan 53yo F with h/o bipolar, HTN, and DMII presents with syncopal episodes. 1. Syncopy - medication vs orthostatic hypotension vs vasovagal vs cardiogenic - holding home BP meds as well as doxepin, buspar, and seroquel for now - will obtain orthostatic vitals - BP responded well to fluid resusitation in ED, will continue on MIVF of LR @ 100cc/hr - similar presentation to last admit, at that time was contributed to seroquel, will order Echo to evaluation cardiogenic causes - daily BMP as well as ordered Mg, Phos to evaluation electrolytes - TSH ordered 2. SOLEDAD - Cr 1.49, was 1.12 at last discharge, possible dehydration - s/p 2.5L bolus and will place on MIVF as above - monitor with daily BMP 3. Lactic Acidosis - 2.8 at admit. Will trend. - infectious vs hypoperfusion - no s/s of infection on exam or history. BCx Pending. UA neg leuk and nitrites. 4. Leukocytosis - infectious vs reactive - No obvious signs of infection on history or exam - UA no signs of acute infection - BCx Pending - Will monitor WBC with daily CBC 5. DMII - will hold metformin, placed on diabetic hyperglycemia protocol. - Will monitor BS with QAC and QHS glucose checks 6. HTN - will hold home BP meds as syncope could be due to orthostatic hypotension 7. Depression/Anxiety/Bipolar - Will continue home effexor, but will hold buspar, doxepin, and seroquel pending further workup 8. HLD - will continue home lipitor Diet: Carb controlled, heart healthy VTE: SCD's Code: Full Disposition/LOS: Pending syncopy workup and clinical improvement. Anticipated hospital course < 48 hours. FMR H&P: Upper Level - Pertinent history 53 y/o F PMHx HTN, HLD, DMII, Anxiety/depression, Bipolar presents because she was sleeping and then woke up out of nowhere and was feeling bad so she went to go check her BP in living room and felt "diminishing of sound and vision". [place] like her "head was swimming". She reports that she leaned against the wall and slid down the wall and then blacked out around 1 or 1:30 this AM. It lasted for a few seconds. She was initially a little slow/groggy to recover. Denies any dizziness. Denies any focal weakness or confusion. Denies hitting her head. Denies loss of bowel or bladder function during syncopal episode. Reports good PO intake lately. She had 2 episodes of emesis after syncopal episode. Endorses nausea. Denies any recent illness or sick contact. Denies fevers. She reports a headache yesterday. Checked her BP prior to calling EMS and it was 80/53. She doesn't usually check her BP. - Pertinent findings Vitals: BP 115/64 HR 84 RR 20 O2 98% on RA PE: Gen - alert, oriented, NAD CV - RRR, no murmurs, no edema Resp - CTAB, no wheezes Abd - mildly tender Neuro - sensation grossly intact, CN II-XII intact, cerebellum intact, 5/5 strength in bilateral extremities Labs: WBC 16, BUN 22, CR 1.49, Lactic Acid 2.8 - Plan Date/Time: 01/23/199 I, Ellie De MD, PGY-3, have evaluated this patient and agree with findings/ plan as outlined by events intern resident. Pertinent changes/additions are listed here. Syncope Pt with h/o prior syncopal episodes that were suspected due to seroquel. Pt has not had problems with syncope since last admission in November. Pt was hypotensive with EMS to 80s/50s and is s/p 2.4L NS and BP has improved. EKG WNL. -Will check orthostatic vital signs -Echo -Mag, Phos, TSH -Telemetry monitoring -Trops -LR @ 100mL/hr Leukocytosis WBC 16. Unknown cause. Pt afebrile. She was initially hypotensive, but since fluid boluses has been normotensive. s/p Zosyn in ED. -Procalcitonin -Blood cultures Elevated Lactic Acid Unknown cause. s/p 2.4L NS -Will trend lactic acid Marijuana Use -Assistant Dean on cessation HTN -Will hold home meds as pt has been hypotensive DM2 Pt metformin at home -Will hold for now and accuchecks ACHS, if elevated will restart meformin vs add SSI Bipolar Disorder There has been concern that seroquel could be contributing to syncopal events. Pt stable at this time. -Will hold seroquel for now to see how patient does throughout the day and decide about continuing it before bedtime tonight Anxiety/Depression -Will continue venlafaxine and hold doxepin as this could possibly be contributing to symptoms as well Dispo: obs on tele VTE ppx: SCD's Code status: Full
[2019-01-23 04:26] LABS: Bacteria/HPF 1+ HPF (None Seen); Bilirubin Negative (Negative); Blood, Urine 1+ (Negative); Clarity Turbid (Clear); Glucose, Urine (Dipstick) Normal (Negative); Leukocyte Negative Leu/uL (Negative); Nitrite Negative (Negative); Protein, Urine (Dipstick) 70 mg/dL (Neg-Trace); RBC/HPF 0-3 HPF (0-3); Urobilinogen Normal mg/dL (Less than 2); WBC/HPF 21-50 HPF (0-3)
[2019-01-23] MEDS ORDERED: Dextrose 5% in Water 1,000 ML IV PRN (04:59)
[2019-01-23] MEDS ORDERED: Dextrose 50% Abboject 50 ML SYRINGE SLOW IVP PRN (04:59)
[2019-01-23] MEDS ORDERED: Acetaminophen 650 MG/20.3 ML UDCUP PO PRN (05:01)
[2019-01-23 05:56] LABS: Troponin I Less than 0.010 ng/mL (< 0.028)
[2019-01-23 06:18] LABS: Lactic Acid 2.7 mmol/L (0.5-2.2)
[2019-01-23 06:23] VITALS: BMI 35.1
[2019-01-23] MEDS ORDERED: Ondansetron ODT 4 MG TAB PO PRN (06:41)
[2019-01-23 07:52] LABS: Magnesium 1.6 mg/dL (1.6-2.6); Phosphorus 2.9 mg/dL (2.3-4.7)
[2019-01-23] MEDS: Famotidine 20 MG TAB PO SCH (08:11)
[2019-01-23] MEDS: Lactated Ringer's 1,000 ML IV SCH ×2 (08:11→18:54)
[2019-01-23] MEDS: Venlafaxine HCl XR 150 MG CAP PO SCH (08:16)
[2019-01-23 08:42] LABS: Troponin I Less than 0.010 ng/mL (< 0.028)
--- NOTE | 2019-01-23 08:45 | RAD ---
CHEST 1 VIEW: HISTORY: Syncope. COMPARISON: 11/25/2018. FINDINGS: Normal cardiac silhouette. Lungs and pleural spaces are clear. No pneumothorax or osseous abnormali ties. IMPRESSION: No acute cardiopulmonary process. POS: [facility]
[2019-01-23] MEDS ORDERED: Venlafaxine HCl XR 150 MG CAP PO SCH (09:00)
--- NOTE | 2019-01-23 12:41 | HP ---
HISTORY OF PRESENT ILLNESS: I have examined the patient. I have discussed the case with Dr. Nikolas Giordano, agree with his assessment and plan. Briefly, Ms. Katz is a 53-year-old white female, who awoke during the night to check her blood pressure. She had a funny feeling and promptly had a syncopal episode. EMS was called and she was found to have a blood pressure of 80/50. She was brought in for further evaluation. She had a similar episode back on 11/27, had a workup at that time, which was negative. PHYSICAL EXAMINATION: VITAL SIGNS: Her vital signs are as follows. Blood pressure is currently 120/84, heart rate is 83 and regular, respirations 18, and her room air pulse ox is 97%. GENERAL: This morning, she is pleasant, awake, and alert, no distress. EAR, NOSE, AND THROAT: Mucous membranes are moist. CARDIAC: Heart rhythm is regular. No gallop or murmur noted. LUNGS: Clear without rales or wheezes. ABDOMEN: Flat and soft. No guarding, rebound, or rigidity. EXTREMITIES: No edema. NEUROLOGIC: No focal deficits. LABORATORY DATA: CBC; white count is 16,100, hemoglobin 12.7, and hematocrit 36.5 with an MCV of 93. Chemistries; sodium 138, potassium 3.6, chloride 101, bicarb 25, BUN 22, creatinine 1.49, and lactic acid is 2.8. Troponins are all negative. EKG shows no ST-segment changes. ASSESSMENT: Syncope, possibly related to orthostasis and numerous medications. PLAN: We will admit, observe on telemetry, and schedule echo and review previous workup. Job ID: [id number]
[2019-01-23] MEDS ORDERED: Latanoprost 0.005% Ophth Soln 2.5 ml Bottle EA EYE SCH (21:00)
[2019-01-23] MEDS ORDERED: Atorvastatin Calcium 40 MG TAB PO SCH ×2 (21:00)
[2019-01-23] MEDS ORDERED: hydrOXYzine 25 MG TAB PO PRN (21:51)
[2019-01-24] MEDS: Lactated Ringer's 1,000 ML IV SCH (05:16)
[2019-01-24 06:05] LABS: #Eosinphils 0.3 thou/uL (0.0-0.7); #Lymphocytes 2.6 thou/uL (1.20-3.40); #Monocytes 0.4 thou/uL (0.11-0.59); #Neutrophils 3.2 thou/uL (1.40-6.50); %Basophils 0.4 % (0.0-1.0); %Eosinophils 4.1 % (0.0-10.0); %Lymphocytes 39.7 % (21.0-51.0); %Monocytes 6.4 % (0.0-10.0); %Neutrophils 49.4 % (42.0-75.0); Hemoglobin 11.6 g/dL (12.0-16.0); Mean Corpuscular HGB CONC 34.7 g/dL (32.0-36.0); Mean Corpuscular Volume 92.1 fL (78.0-98.0); Mean Platelet Volume 7.1 fL (7.4-10.4); Platelet Count 344 thou/uL (130-400); RBC Distribution Width 11.9 % (11.5-14.5); Red Blood Cell (RBC) Count 3.64 mill/uL (4.20-5.40); White Blood Cell (WBC) Count 6.5 thou/uL (4.8-10.8)
[2019-01-24 06:30] LABS: Anion Gap 13 mmol/L (10-20); BUN (Urea Nitrogen) 9 mg/dL (9.8-20.1); Calc. Creatinine Clearance 91 mL/min (70-130); Calcium 9.3 mg/dL (7.8-10.44); Carbon Dioxide 27 mmol/L (22-29); Chloride 104 mmol/L (98-107); Estimated GFR-MDRD 67; Glucose 113 mg/dL (70-105); Potassium 3.8 mmol/L (3.5-5.1); Sodium 140 mmol/L (136-145)
--- NOTE | 2019-01-24 07:25 | PDOC.FM ---
- Subjective Subjective: pt resting comfortably in bed, denies syncope or headache. tolerating PO and ambulating successfully - Objective Vital Signs & Weight: Vital Signs (12 hours) Temp Pulse Resp BP BP BP Pulse Ox 01/24/19 04:00 98.4 F 80 16 122/59 L 94 L 01/23/19 23:07 99.0 F 83 15 145/63 H 93 L 01/23/19 19:15 98.6 F 93 16 139/76 92 L Weight Weight 77.201 kg I&O: 01/22/19 01/23/19 01/24/19 06:59 06:59 06:59 Intake Total 2200 Output Total 4000 Balance -1800 Result Diagrams: 01/24/19 05:47 01/24/19 05:47 Phys Exam - Physical Examination Constitutional: NAD HEENT: moist MMs Neck: no JVD Gastrointestinal: no distention Musculoskeletal: no edema Neurological: moves all 4 limbs Psychiatric: normal affect Skin: no rash Dx/Plan (1) Lactic acid acidosis Code(s): E87.2 - ACIDOSIS Status: Acute (2) Leukocytosis Code(s): D72.829 - ELEVATED WHITE BLOOD CELL COUNT, UNSPECIFIED Status: Acute (3) Syncope Code(s): R55 - SYNCOPE AND COLLAPSE Status: Acute (4) DMII (diabetes mellitus, type 2) Status: Chronic Qualifiers: Diabetes mellitus complication status: without complication (5) Depression Code(s): F32.9 - MAJOR DEPRESSIVE DISORDER, SINGLE EPISODE, UNSPECIFIED Status : Chronic (6) HTN (hypertension) Code(s): I10 - ESSENTIAL (PRIMARY) HYPERTENSION Status: Chronic - Plan Plan: Syncope - h/o prior syncopal episodes that were suspected due to seroquel. - hypotensive with EMS to 80s/50s and is s/p 2.4L NS and BP has improved. EKG WNL. -Echo, Mag, Phos, Trops, TSH, orthostatic vital signs wnl - asymptomatic since admission, VSS, DC fluids Leukocytosis - WBC 16. most likely reactive. Pt afebrile. VSS - s/p Zosyn in ED, Procalcitonin neg, Blood cultures NGTD - infectious cause unlikely at this time. Elevated Lactic Acid - likely 2/2 fall HTN -resume DM2 - resume home meds Bipolar Disorder - resumed seroquel, recommend alternative medication upon DC 2/2 side effect of orthostasis - f/u w/ [facility] Anxiety/Depression -Will continue venlafaxine resume doxepin VTE ppx: SCD's Code status: Full Dispo: DC today with no continued episodes
[2019-01-24 08:33] VITALS: TEMP 98
[2019-01-24] MEDS: Famotidine 20 MG TAB PO SCH (08:42)
[2019-01-24] MEDS: Venlafaxine HCl XR 150 MG CAP PO SCH (08:43)
[2019-01-24 08:47] LABS: Lactic Acid 0.8 mmol/L (0.5-2.2)
[2019-01-24] MEDS ORDERED: busPIRone HCl 10 MG TAB PO SCH (09:00)
[2019-01-24] MEDS ORDERED: Lisinopril 5 MG TAB PO SCH (09:00)
--- NOTE | 2019-01-24 10:42 | PRG ---
DATE OF SERVICE: 01/24/2019 This morning, Ms. Katz is completely awake and alert, in no distress whatever. Her blood pressure is 136/63. We have held her blood pressure medications during this stay and her blood pressures have been fine. I believe her episode of near syncope/syncope was due to medications, orthostatic changes, and possibly some autonomic dysfunction from her long history of type 2 diabetes. In the event for now, we will hold her blood pressure medications and have her follow up with our clinic in less than one week. Her echocardiogram showed an ejection fraction of 55% to 60% with some mention and suggestion of diastolic dysfunction and mild mitral regurgitation. Really nothing there to explain the syncopal episode. She will be discharged later today. Job ID: [id number]
[2019-01-24 10:52] VITALS: BP 165/72
[2019-01-24] MEDS ORDERED: Doxepin HCl 25 MG CAP PO SCH (21:00)
--- NOTE | 2019-01-25 14:12 | DIS ---
DATE OF ADMISSION: 01/23/2019 DATE OF DISCHARGE: 01/24/2019 ADMITTING ATTENDING: Dr. Matthew Mcadams. DISCHARGE ATTENDING: Dr. Matthew Mcadams. RESIDENT: Abdulaziz Jiang DO. CONSULTS: None. IMAGING: Echocardiogram is significant for left ventricular ejection fraction visually estimated at 55% to 60%. Chest x-ray, no acute intrathoracic abnormalities. DISCHARGE MEDICATIONS: 1. Metformin 1000 mg p.o. b.i.d. 2. Buspirone 15 mg p.o. t.i.d. 3. Venlafaxine 150 mg p.o. daily. 4. Lisinopril 5 mg p.o. daily. 5. Xalatan one drop each eye at bedtime. 6. Doxepin 200 mg p.o. at bedtime. 7. Atorvastatin calcium 40 mg p.o. at bedtime. 8. Seroquel 400 mg p.o. at bedtime. 9. Ibuprofen 2 tabs p.o. t.i.d. p.r.n. 10. Zantac 150 mg p.o. daily. 11. Hydroxyzine 1 to 2 tabs p.o. b.i.d. p.r.n. Discontinued the lisinopril 10 mg p.o. daily. DISCHARGE DIAGNOSES: 1. Orthostatic syncope. 2. Leukocytosis. SECONDARY DIAGNOSES: 1. Leukocytosis. 2. Elevated lactic acid. 3. Hypertension. 4. Diabetes mellitus type 2. 5. Bipolar disorder. 6. Anxiety and depression. HISTORY OF PRESENT ILLNESS/HOSPITAL COURSE: Ms. Sylvia Katz is a 53-year-old female with past medical history significant for bipolar, diabetes mellitus type 2, and hypertension, who presents after a syncopal event. She had a very similar admission approximately one month ago with the same complaint of waking up in the middle of the night with a funny feeling, getting up to check her blood pressure and passing out. She did the same thing this time. She presented to the ER with low blood pressure, was given fluid and was easily resuscitated after a 2.5 L bolus of normal saline. Lab values were all within normal limits including TSH, CBC, CMP normal. Orthostatic vital signs were normal after the fluid bolus. The patient received further evaluation and workup which pointed to most likely diagnosis of orthostatic syncope. Recommend follow up with [facility] to consider switching Seroquel as orthostasis is a side effect that some people experience while on this medication. DISCHARGE INSTRUCTIONS: LOCATION: Home. ACTIVITY: As tolerated. DIET: Diabetic. FOLLOWUP: Follow up with PCP, Dr. Malu Padgett in the next 3 to 7 days. Job ID: [id number]
== END 2019-01-24 11:12 | disposition home or self-care (01) ==
LOC: ERS 01:03 → INTOOBSV 04:31 → ERHOLD 04:31 → 2SW 04:50
PROVIDERS: ADMIT Family Medicine; ATTEND Family Medicine
DX: R55 Syncope and collapse (principal); D72.829 Elevated white blood cell count, unspecified; R74.0 Nonspecific elevation of levels of transaminase and lactic acid dehydrogenase [LDH]; I10 Essential (primary) hypertension; E11.9 Type 2 diabetes mellitus without complications; F31.9 Bipolar disorder, unspecified; F41.9 Anxiety disorder, unspecified; N17.9 Acute kidney failure, unspecified; E87.2 Acidosis; E78.5 Hyperlipidemia, unspecified; F12.10 Cannabis abuse, uncomplicated; Z87.891 Personal history of nicotine dependence; Z88.1 Allergy status to other antibiotic agents; Z79.84 Long term (current) use of oral hypoglycemic drugs; Z79.899 Other long term (current) drug therapy
CPT/HCPCS: 36415; 36416; 71045; 80048; 80053; 81003; 81015; 83605; 83735; 84100; 84145; 84443; 84484; 85025; 87040; 93005; 93306; 96361; 96365; G0378; J2543

== ENCOUNTER 2019-02-16 18:19 | Emergency (ER) | payer OTHER, SELFPAY ==
[~2019-02-16 18:19] MED LIST: ISOVUE-370 76%-LOCM 1 ML ONE
[2019-02-16 18:49] LABS: #Eosinphils 0.1 thou/uL (0.0-0.7); #Monocytes 0.5 thou/uL (0.11-0.59); #Neutrophils 13.8 thou/uL (1.40-6.50); %Basophils 0.2 % (0.0-1.0); %Eosinophils 0.5 % (0.0-10.0); %Lymphocytes 6.5 % (21.0-51.0); %Monocytes 3.2 % (0.0-10.0); %Neutrophils 89.6 % (42.0-75.0); Hemoglobin 13.8 g/dL (12.0-16.0); Mean Corpuscular HGB CONC 34.3 g/dL (32.0-36.0); Mean Corpuscular Hemoglobin 30.9 pg (27.0-31.0); Mean Corpuscular Volume 90.1 fL (78.0-98.0); Mean Platelet Volume 7.2 fL (7.4-10.4); Platelet Count 396 thou/uL (130-400); RBC Distribution Width 11.9 % (11.5-14.5); Red Blood Cell (RBC) Count 4.48 mill/uL (4.20-5.40); White Blood Cell (WBC) Count 15.4 thou/uL (4.8-10.8)
[2019-02-16] MEDS ORDERED: Ondansetron PF 4 MG/2 ML Vial ONE (18:50)
--- NOTE | 2019-02-16 18:52 | RAD ---
Chest one view HISTORY: Chest pain. COMPARISON: 01/23/2019. FINDINGS: Cardiac silhouette is magnified by projection. Pulmonary vascular appears unremarkable. Med iastinum is midline. No lobar consolidation or evidence of pneumothorax. IMPRESSION: No active cardiopulmonary abnormalities are demonstrated.
[2019-02-16 19:08] LABS: ALT (SGPT) 32 U/L (8-55); AST (SGOT) 27 U/L (5-34); Albumin 4.6 g/dL (3.5-5.0); Alkaline Phosphatase 97 U/L (40-150); Anion Gap 20 mmol/L (10-20); BUN (Urea Nitrogen) 18 mg/dL (9.8-20.1); Bilirubin, Total 0.7 mg/dL (0.2-1.2); Calc. Creatinine Clearance 0 mL/min (70-130); Calcium 9.8 mg/dL (7.8-10.44); Carbon Dioxide 15 mmol/L (22-29); Chloride 101 mmol/L (98-107); Estimated GFR-MDRD 66; Globulin 3.5 g/dL (2.4-3.5); Glucose 162 mg/dL (70-105); Lipase 22 U/L (8-78); Potassium 3.5 mmol/L (3.5-5.1); Protein, Total 8.1 g/dL (6.0-8.3); Sodium 132 mmol/L (136-145)
[2019-02-16] MEDS ORDERED: Morphine 4 MG/ML VIAL ONE (20:57)
--- NOTE | 2019-02-16 21:21 | CT ---
CT abdomen and pelvis with IV contrast HISTORY: Nausea vomiting. Diarrhea. COMPARISON: 11/14/2014. FINDINGS: The lung bases are clear. Gallbladder is surgically absent. Solid organs have a normal appe arance. No enlarged lymph nodes or free fluid. Small bowel is not dilated. No inflammation apparent. IMPRESSION: No acute abnormalities are demonstrated to explain the patient's symptoms.
[2019-02-16 23:38] LABS: Bilirubin Negative (Negative); Blood, Urine Negative (Negative); Clarity Clear (Clear); Glucose, Urine (Dipstick) Normal (Negative); Leukocyte Negative Leu/uL (Negative); Nitrite Negative (Negative); Protein, Urine (Dipstick) Negative (Neg-Trace); Urobilinogen Normal mg/dL (Less than 2)
== END 2019-02-16 23:50 | disposition home or self-care (01) ==
LOC: ERS 18:19
DX: E86.0 Dehydration (principal); D72.829 Elevated white blood cell count, unspecified; R11.2 Nausea with vomiting, unspecified; R19.7 Diarrhea, unspecified; E11.9 Type 2 diabetes mellitus without complications; I10 Essential (primary) hypertension; F41.9 Anxiety disorder, unspecified; F31.9 Bipolar disorder, unspecified
CPT/HCPCS: 36415; 71045; 74177; 80053; 81003; 83690; 84484; 85025; 93005; 96361; 96372; 96374; 96375; J0500; J2270; J2405; Q9966

== ENCOUNTER 2019-03-09 13:38 | Emergency (ER) | payer OTHER, SELFPAY ==
--- NOTE | 2019-03-09 14:04 | RAD ---
RIGHT ANKLE THREE VIEWS: HISTORY: Fall. Right ankle pain. FINDINGS: Soft tissue swelling is seen laterally. No acute fracture or dislocation is identified. The ankle m ortise is maintained. POS: [facility]
[2019-03-09] MEDS ORDERED: Morphine 4 MG/ML VIAL ONE (14:05)
== END 2019-03-09 15:10 | disposition home or self-care (01) ==
LOC: ERS 13:38
DX: S93.401A Sprain of unspecified ligament of right ankle, initial encounter (principal); E11.9 Type 2 diabetes mellitus without complications; I10 Essential (primary) hypertension; E78.5 Hyperlipidemia, unspecified; F41.9 Anxiety disorder, unspecified; F31.9 Bipolar disorder, unspecified; Z79.899 Other long term (current) drug therapy; X50.1XXA Overexertion from prolonged static or awkward postures, initial encounter
CPT/HCPCS: 96372; J2270

== ENCOUNTER 2019-05-28 01:28 | Emergency (ER) | payer OTHER ==
[2019-05-28] MEDS ORDERED: Meclizine HCl 25 MG TAB ONE (01:57)
--- NOTE | 2019-05-28 09:11 | RAD ---
FRONTAL VIEW CHEST: INDICATIONS: Dizziness. COMPARISON: 02/16/2019 FINDINGS: The lungs are clear. No effusion or pneumothorax. The cardiac silhouette is normal in size. IMPRESSION: No focal consolidation. POS: [facility]
== END 2019-05-28 03:01 | disposition home or self-care (01) ==
LOC: ERS 01:28
DX: R42 Dizziness and giddiness (principal); E11.9 Type 2 diabetes mellitus without complications; I10 Essential (primary) hypertension; E78.5 Hyperlipidemia, unspecified; F41.9 Anxiety disorder, unspecified; F31.9 Bipolar disorder, unspecified; Z79.899 Other long term (current) drug therapy; Z79.84 Long term (current) use of oral hypoglycemic drugs
CPT/HCPCS: 71045; 93005; J8597

== ENCOUNTER 2021-09-06 11:37 | Outpatient (CLI) | payer BC | END 2021-09-06 11:38 | disposition home or self-care (01) | LOC: BICRAD 11:37 | PROVIDERS: ATTEND Neurological Surgery | DX: M54.12 Radiculopathy, cervical region (principal) | CPT/HCPCS: 72050 ==

== ENCOUNTER 2023-01-25 13:02 | Emergency (ER) | payer BC ==
[~2023-01-25 13:02] MED LIST changes: -ISOVUE-370 76%-LOCM 1 ML ONE; +Iopamidol-370 76% 500 ML MDV (1 ML CHARGE) ONE
[2023-01-25 13:52] LABS: #Eosinphils 0.1 thou/uL (0.0-0.7); #Monocytes 0.6 thou/uL (0.11-0.59); %Basophils 0.1 % (0.0-1.0); %Lymphocytes 20.3 % (21.0-51.0); %Monocytes 8.6 % (0.0-10.0); %Neutrophils 69.7 % (42.0-75.0); Mean Corpuscular HGB CONC 34.7 g/dL (32.0-36.0); Mean Corpuscular Hemoglobin 29.7 pg (27.0-31.0); Mean Corpuscular Volume 85.8 fl (78.0-98.0); Mean Platelet Volume 9.3 fL (7.4-10.4); Platelet Count 267 10x3/uL (130-400); RBC Distribution Width 13.1 % (11.5-14.5); Red Blood Cell (RBC) Count 4.71 mill/uL (4.20-5.40); White Blood Cell (WBC) Count 7.2 10x3/uL (4.8-10.8)
[2023-01-25 14:14] LABS: ALT (SGPT) 28 U/L (8-55); AST (SGOT) 30 U/L (5-34); Albumin 4.3 g/dL (3.5-5.0); Alkaline Phosphatase 80 U/L (40-110); Anion Gap 14 mmol/L (10-20); BUN (Urea Nitrogen) 15 mg/dL (9.8-20.1); Bilirubin, Total 0.3 mg/dL (0.2-1.2); Calc. Creatinine Clearance 0 mL/min (70-130); Calcium 9.3 mg/dL (7.8-10.44); Carbon Dioxide 21 mmol/L (22-29); Chloride 103 mmol/L (98-107); Estimated GFR 80; Glucose 132 mg/dL (70-105); Lipase 22 U/L (8-78); Potassium 3.6 mmol/L (3.5-5.1); Protein, Total 7.3 g/dL (6.0-8.3); Sodium 134 mmol/L (136-145)
[2023-01-25] MEDS ORDERED: Ondansetron PF 4 MG/2 ML Vial ONE (15:22)
[2023-01-25 15:57] LABS: Bacteria/HPF None Seen HPF (None Seen); Bilirubin Negative (Negative); Blood, Urine Negative (Negative); CAUTI Indications for Culture Dysuria,urgency,freq; Clarity Clear (Clear); Glucose, Urine (Dipstick) Normal (Negative); Ketone, Urine 10 mg/dL (Negative); Leukocyte Negative Leu/uL (Negative); Nitrite Negative (Negative); Protein, Urine (Dipstick) Negative (Neg-Trace); RBC/HPF 0-3 HPF (0-3); Specific Gravity, Urine 1.018 (1.002-1.036); Urobilinogen Normal mg/dL (Less than 2); pH, Urine 6.5 (5.0-9.0)
[2023-01-25 16:03] LABS: Urine Culture Reflex No No
== END 2023-01-25 17:38 | disposition home or self-care (01) ==
LOC: ERS 13:02
DX: R10.12 Left upper quadrant pain (principal); R11.2 Nausea with vomiting, unspecified; R19.7 Diarrhea, unspecified; E11.9 Type 2 diabetes mellitus without complications; I10 Essential (primary) hypertension
CPT/HCPCS: 36415; 71045; 74177; 80053; 81001; 83690; 84484; 85025; 93005; 96361; 96374; J2405; Q9967